=== PATIENT | male | born 1980 | race Caucasian/White ===

== ENCOUNTER 2024-01-17 14:27 | Outpatient (AMB) | payer OTHER, SELFPAY ==
--- NOTE | 2024-01-17 14:52 | MHC.OFFVIS ---
Vital Signs 01/17/24 14:54 Height 6 ft 4 in Weight 284 lb BMI 34.6 BP 118/82 Blood Pressure Location Rt brachial Position Sitting Pulse 91 Pulse Source Pulse Oximeter Pulse Oximetry (%) 97 Oxygen Delivery Method Room Air Intake Visit Reasons: ENP-Tremors - Confirmed Intake Note: Patient presents for tremors. Patient tremors started about 4 years ago and gradually gotten worst Allergies No Known Allergies Allergy (Verified 01/17/24 14:55) Medication List - Last Reconciled 01/17/24 by JAYLIN Escobedo amlodipine 5 mg PO DAILY labetalol 100 mg PO BID mycophenolate mofetil 500 mg PO Q12H omeprazole 20 mg PO DAILY tacrolimus XL 2 mg PO QAM HPI Comments Details: 43-yr-old male presents for new pt evaluation of movement disorder, specifically: progressing tremor in setting of s/p renal transplant d/t bilateral ESRD, HTN, HLD, CARLIN on CPAP, ED, Right ankle pain, Left shoulder pain, PTSD. Pt is accompanied by his Mignon, who helps w/ history. Pt is concerned about worsening BUE, R > L, rest and action tremor. Pt reports the tremor started in September 2019 which was 1 month after having been incidentally diagnosed with bilateral kidney failure. 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 The tremor became more noticeable after he underwent kidney transplant in Jan 2020, where he was required to rest and stay at home for mx months. Pt is right handed. ADL status: He does need assist w/ ADLs now. Prior to Spring 2021, he did have difficulty standing for long d/t h/o right reconstructed ankle- would need to sit to put his pants on. now has to lay down to put his pants on. IADL status: His manages the finances, households issues, medical appointments- d/t pt's memory is not as strong. Has systems in place. Fine-motor skills: Difficulty holding onto things. Changes in writing or micrographia: Writing is messier, now only prints. Vision changes: dry eye Voice changes or Hypophonia: denies Hyposmia: denies Dysphagia: denies Drooling: sometimes on the right side x's past 6-7 yrs. he has always been prone to spilling from cata right side of his mouth- states his whole family does this and his children to do this as much. Orthostatic lightheadedness: Only if very hot GI: Endorses constipation and diarrhea. Only uses prn lomotil. Not using anything for constipation- to avoid dehydrating. Tries to consume fiber through fruit. : Frequency r/t transplant Musculoskeletal issues: Has chronic neck and back pain- thinks r/t mx yrs of wearing heavy gear. Paresthesias: Frequent numbness down his legs, usually RLE but may be BLE. Bilateral warm tingly sensation from elbow down the arms- at times. Slowness: A little slower Stiffness: Has visible fasciculation- in random parts of the body- he states he was told this was r/t his chronic amlodipine use- states he cannot come off amlodipine as this causes his BP to spike . Tremor: as above Involuntary movements: sometimes his body jerks- mostly in the legs. Often occurs when sleeping. Has occurred rarely when standing or walkings. This started prior to 2011. Dyskinesia: denies Gait changes: tends to favor his right leg. Freezing episodes: occasionally- after he has been resting and gets up to move, leg has felt heavy and stuck, shuffles, which all of a sudden breaks. Falls: thinks he could have falls or loose of balance while working. his last fall was 1 month after the kidney transplant sx. Mood concerns: worsening anxiety, depression, PTSD. He is f/b therapist. He was receiving EMDR tx he will restart in the fall. His feels the therapy is helping some. Memory impairment: poor memory. Sleep difficulty: CARLIN- his AHI was 58/hr from an in-lab PSG. He does use his CPAP- does not love it. Parasomnias: Yes- talks, yells, punches/kicks/runs in bed, sleep terrors. [facility]- caused sleepwalking, lunesta, ? triazolam, amitriptyline, etc- did not tolerate. Hallucinations: denies. states that he hears things x's yrs- thinks something is happening outside of the house but may not be happening. Usual exercise: not much at this point- is scheduled to have right ankle repair. uses some cannibus- for pain. Previous head imaging or work-up: denies recent head imaging or EMG/NCS. History of concussion/head injury? 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 History of neuroleptic (metoclopramide/antipsychotics) use? denies History of psychiatric hospitalizations? denies History of occupational chemical exposures? 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 Family history of movement disorders? denies Family history of mood disorder or suicide? Family history of neurological disorders? Paternal grandmother- passed in 80s w/ dementia. Maternal grandmother- in her 80s and has dementia. [facility] Medical History (Updated 01/17/24 @ 21:34 by JAYLIN Escobedo) Tremors of nervous system PTSD (post-traumatic stress disorder) Right knee pain Left shoulder pain CARLIN (obstructive sleep apnea) Erectile dysfunction Low back pain Hyperlipidemia HTN (hypertension) Surgical History (Updated 01/09/24 @ 11:27 by JOSE Burnette) Hx of kidney transplant H/O vasectomy Family History Mother Thyroid disease Father Diabetes Heart disease Social History (Updated 01/17/24 @ 14:59 by JOSE Burnette) Patient Tobacco Use Status: Former Tobacco user Years Smoked: quit 4 years ago Physical Exam Vital Signs: Last Vital Signs Pulse 91 01/17/24 14:54 BP 118/82 01/17/24 14:54 Pulse Ox 97 01/17/24 14:54 Oxygen Delivery Method Room Air 01/17/24 14:54 BMI result Body Mass Index 34.6 Const General: cooperative and no acute distress Resp Effort & Inspection: normal respiratory effort and able to speak in complete sentences Cardio Rate: regular rate Rhythm: regular rhythm Neuro Other: General: A&O x's 3 w/ STM lapses Expression: Intact Voice: Intact Neck: Good overall cervical ROM Tremor: Mild BUE postural and kinetic tremor, L > R Tone: no appreciable tone Dyskinesia: none FFM: Ok Finger-Nose: mild kinetic tremor w/o dysmetria BUE COLBY: Decreased fluidity on left MS: 5/5 throughout Foot taps: Decreased fluidity on the left Gait: Stands slowly, uses his arms to push himself up, decreased arm swing, RLE guarding, steady gait. Psych: Pleasant affect. Deep tendon reflexes (DTR's): Right triceps reflex intensity grade: 2+, Left triceps reflex intensity grade: 2+, Rt Biceps (C5, C6): 2+, Left biceps reflex intensity grade: 2+, Right brachioradialis reflex intensity grade: 2+, Left brachioradialis reflex intensity grade: 2+, Right patellar reflex intensity grade: 2+ and Left patellar reflex intensity grade: 2+ Psych Mental Status: mental status grossly normal Speech and movement: Clear speech present Affect: normal affect Attitude: cooperative Thought process: Normal thought process present Assessment & Plan Assessment & Plan (1) Tremors of nervous system: Code(s): R25.1 - Tremor, unspecified Category: Medical (2) Paresthesia and pain of both upper extremities: Code(s): R20.2 - Paresthesia of skin; M79.601 - Pain in right arm; M79.602 - Pain in left arm Category: Medical Plan Pt is advised to undergo: Brain MRI w/wo BUE EMG/NCS Asked pt/ to record tremor seen at home. Futire considerations- OT eval & tx, DaTscan, trial of med to tx tremor. Pt seen in collaboration w/ Dr Kayley Craft. Orders: Orders MR head/brain wo/w con 01/17/24 M79.601 - Pain in right arm, M79.602 - Pain in left arm, R20.2 - Paresthesia of skin, R25.1 - Tremor, unspecified NE electromyogram (EMG) 01/17/24 M79.601 - Pain in right arm, M79.602 - Pain in left arm, R20.2 - Paresthesia of skin, R25.1 - Tremor, unspecified NE nerve conduction velocity 01/17/24 M79.601 - Pain in right arm, M79.602 - Pain in left arm, R20.2 - Paresthesia of skin, R25.1 - Tremor, unspecified Coding Level of Care Code New Pt Level 4 (43884) Diagnoses Tremors of nervous system R25.1 Paresthesia and pain of both upper extremities R20.2; M79.601; M79.602
[2024-01-17 14:54] VITALS: BP 118/82; PULSE 91; O2SAT 97; BMI 34.6
== END 2024-01-17 16:24 | disposition home or self-care (01) ==
PROVIDERS: Visit Provider Nurse Practitioner Family
DX: R25.1 Tremor, unspecified (principal); R20.2 Paresthesia of skin; M79.601 Pain in right arm; M79.602 Pain in left arm
CPT/HCPCS: 99204

== ENCOUNTER → 2024-01-17 14:27 | Outpatient (BNVA) | payer OTHER, SELFPAY | PROVIDERS: Visit Provider Nurse Practitioner Family | DX: R25.1 Tremor, unspecified (principal); R20.2 Paresthesia of skin; M79.601 Pain in right arm; M79.602 Pain in left arm; I12.9 Hypertensive chronic kidney disease with stage 1 through stage 4 chronic kidney disease, or unspecified chronic kidney disease; N18.9 Chronic kidney disease, unspecified; G47.33 Obstructive sleep apnea (adult) (pediatric); Z94.0 Kidney transplant status; Z99.89 Dependence on other enabling machines and devices | CPT/HCPCS: 99202 ==

== ENCOUNTER 2024-03-07 15:40 | Outpatient (REF) | payer OTHER, SELFPAY ==
--- NOTE | ~2024-03-07 | MR_ITS ---
EXAMINATION: MR BRAIN WITHOUT AND WITH CONTRAST CLINICAL INFORMATION: Headaches, tremors since 2019. History of infantile seizures. History of head injuries. COMPARISON: No prior. TECHNIQUE: Multiplanar, multisequence MRI of the brain was obtained before and after the intravenous administration of 10 mL IV Gadavist. Standard sequences were utilized, on a 1.5 Jackie Siemens magnet. In addition, sagittal T2 FLAIR sequences was obtained. FINDINGS: There is no diffusion restriction. There is no intracranial hemorrhage, acute infarction, mass effect, or edema. Ventricles, sulci, and cisterns are normal in size and configuration for patient age. No shift of midline. No abnormal hemosiderin deposition is identified. There are a numerous scattered punctate and minimally confluent foci of white matter T2 hyperintensity in the periventricular, subcortical, and hemispheric deep white matter, nonspecific, but most likely on the basis of small vessel ischemic changes. After administration of contrast, there is no abnormal intra or extra-axial contrast enhancement. Midline structures appear normally formed. The pituitary gland appears normal. There is a simple 6 mm pineal cyst without enhancement or nodularity. This is benign. Posterior fossa structures appear normal. Cerebellar tonsils are appropriately located. Major flow voids are preserved within the skull base. The globes and orbital contents demonstrate no abnormalities. Paranasal sinuses are clear bilaterally. Nasal septum right deviated with a rightward spur. The mastoids and tympanic cavities are normally aerated. Extracranial soft tissues demonstrate no abnormalities. No suspicious bone marrow changes are evident. Atlantoaxial joint is normal. MR/MR head/brain wo/w con IMPRESSION: 1. No evidence of intracranial hemorrhage, acute infarction, mass effect, or edema. No abnormal intra or extra-axial enhancement. 2. There are numerous bilateral scattered foci of punctate and minimally confluent white matter T2 hyperintensity in the supratentorial periventricular, subcortical, and hemispheric deep white matter. No distribution or morphology specific to demyelinating disease. 3. Additional ancillary findings as discussed in the body the report. Electronically signed by: Gabriel Campbell MD 04/03/2024 12:34 PM CHATA SINGH
[2024-03-07] MEDS: gadobutroL 10 ML VIAL IVPUSH (16:28)
== END 2024-03-07 15:41 | disposition home or self-care (01) ==
LOC: HO.MRI 15:40
PROVIDERS: Visit Provider Nurse Practitioner Family
DX: M79.601 Pain in right arm (principal); M79.602 Pain in left arm; R25.1 Tremor, unspecified; R20.2 Paresthesia of skin
CPT/HCPCS: 70553; A9585

== ENCOUNTER → 2024-03-07 15:40 | Outpatient (BNV) | payer OTHER, SELFPAY | PROVIDERS: Visit Provider Radiology Diagnostic Radiology | DX: R51.9 Headache, unspecified (principal) | CPT/HCPCS: 70553 ==

== ENCOUNTER 2024-04-15 13:01 | Outpatient (AMB) | payer OTHER, SELFPAY ==
--- NOTE | 2024-04-15 12:57 | MHC.OFFVIS ---
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 BUE EMG/NCS appointment is pending being rescheduled. 03/07/24, MR/MR head/brain wo/w con IMPRESSION: 1. No evidence of intracranial hemorrhage, acute infarction, mass effect, or edema. No abnormal intra or extra-axial enhancement. 2. There are numerous bilateral scattered foci of punctate and minimally confluent white matter T2 hyperintensity in the supratentorial periventricular, subcortical, and hemispheric deep white matter. No distribution or morphology specific to demyelinating disease. 3. A benign simple 6 mm pineal cyst without enhancement or nodularity. Pt reports his tremor is increasing. He is now needing to use a covered cup, noticing more difficulties eating as food falls off his fork, and has more difficulties opening jars. notices the tremors more often, but has had a hard time recording episodes as pt tries to suppress them. [facility] Medical History Tremors of nervous system PTSD (post-traumatic stress disorder) Right knee pain Left shoulder pain CARLIN (obstructive sleep apnea) Erectile dysfunction Low back pain Hyperlipidemia HTN (hypertension) Surgical History Hx of kidney transplant H/O vasectomy Family History Mother Thyroid disease Father Diabetes Heart disease Social History Patient Tobacco Use Status: Former Tobacco user Years Smoked: quit 4 years ago Physical Exam Vital Signs: BMI result Body Mass Index 34.7 Const Other: Pt laying back in a darkened room. General: cooperative and no acute distress Orientation/consciousness: patient oriented x3 Resp Effort & Inspection: normal respiratory effort and able to speak in complete sentences Neuro General: patient oriented x3 Cognition (Neuro): normal cognition Psych Appearance: grossly normal Mental Status: mental status grossly normal Speech and movement: Normal speech and movement present Affect: normal affect Attitude: cooperative Telehealth Telehealth Telehealth Platform: [facility] Location of provider rendering services: practice address Location of patient: address on file Patient Identification confirmed using: Name, : Yes Telehealth method: video Patient verbally consented to treatment: Yes Patient verbally consented to billing insurance company: Yes Patient informed of any privacy concerns related to visit: Yes Minutes spent on Phone/Video with Pt.: 22 Assessment & Plan Assessment & Plan (1) Tremors of nervous system: Code(s): R25.1 - Tremor, unspecified Category: Medical (2) Paresthesia and pain of both upper extremities: Code(s): R20.2 - Paresthesia of skin; M79.601 - Pain in right arm; M79.602 - Pain in left arm Category: Medical Plan BUE EMG/NCS as ordered. Reviewed [facility] MRI w/wo report and images- No acute findings of evidence of intracranial hemorrhage, acute infarction, mass effect, edema, or abnormal intra or extra-axial enhancement. Numerous bilateral scattered foci of punctate and minimally confluent white matter T2 hyperintensity in the supratentorial periventricular, subcortical, and hemispheric deep white matter. No distribution or morphology specific to demyelinating disease. No findings to accoount for pt's tremor s/s. Likely microangiopathy secondary to hx of uncontrolled HTN, HLD, h/o ESRD- now s/p kidlney transplant. A benign simple 6 mm pineal cyst without enhancement or nodularity. Will consider 6-12 month f/u brain MRI to assess stability of above intracerebral white matter disease. Pt is hesitatnt to trial tremor suppressing emdication at this time. Will refer pt to OT for tremor eval & tx- [facility] [place] Asked pt/ to record tremor seen at home. Futire considerations- DaTscan, trial of med to tx tremor. Orders: Orders OT Evaluation and Treatment Today M79.601 - Pain in right arm, M79.602 - Pain in left arm, R20.2 - Paresthesia of skin, R25.1 - Tremor, unspecified Coding Level of Care Code Tele Est Pt Level 4 (99477) Diagnoses Tremors of nervous system R25.1 Paresthesia and pain of both upper extremities R20.2; M79.601; M79.602
[2024-04-15 13:00] VITALS: BMI 34.7
== END 2024-04-15 14:01 | disposition home or self-care (01) ==
PROVIDERS: Visit Provider Nurse Practitioner Family
DX: R25.1 Tremor, unspecified (principal); R20.2 Paresthesia of skin; M79.601 Pain in right arm; M79.602 Pain in left arm
CPT/HCPCS: 99214

== ENCOUNTER 2024-08-22 14:04 | Outpatient (REF) | payer OTHER, SELFPAY ==
--- NOTE | 2024-08-22 14:07 | EMG_ITS ---
Chief complaint: Tremors, denies fasciculations, no weakness or atrophy History of kidney transplant Reason for referral: Evaluate for neuropathy Referred by: Katerin Sanchez NP Procedure done: Bilateral upper extremities NCS/EMG Precautions and/or limitations: None The limb temperature was monitored continuously and remained between 32-36 degrees C during the performance of the NCS. Nerve Conduction Studies Anti Sensory Summary Table ?Stim Site NR Onset (ms) Norm Onset (ms) Peak (ms) Norm Peak (ms) O-P Amp (?V) Norm O-P Amp Site1 Site2 Delta-0 (ms) Dist (cm) Mikey (m/s) Norm Mikey (m/s) Left Median Anti Sensory (2nd Digit) Wrist ? 2.4 3.0 <3.6 20.8 >10 Wrist 2nd Digit 2.4 14.0 58 Right Median Anti Sensory (2nd Digit) Wrist ? 2.3 3.1 <3.6 32.1 >10 Wrist 2nd Digit 2.3 14.0 61 Left Ulnar Anti Sensory (5th Digit) Wrist ? 2.2 3.1 <3.7 21.4 >15.0 Wrist 5th Digit 2.2 14.0 64 Right Ulnar Anti Sensory (5th Digit) Wrist ? 2.4 3.1 <3.7 23.7 >15.0 Wrist 5th Digit 2.4 14.0 58 Motor Summary Table ?Stim Site NR Onset (ms) Norm Onset (ms) O-P Amp (mV) Norm O-P Amp iAmp (mV) Amp (1st) (%) Site1 Site2 Delta-0 (ms) Dist (cm) Mikey (m/s) Norm Mikey (m/s) Left Median Motor (Abd Poll Brev) Wrist ? 3.3 <3.9 7.9 >4.5 9.5 100.0 Elbow Wrist 4.4 25.0 57 >45 Elbow ? 7.7 5.2 6.4 65.8 Right Median Motor (Abd Poll Brev) Wrist ? 3.3 <3.9 11.1 >4.5 13.1 100.0 Elbow Wrist 4.6 26.0 57 >45 Elbow ? 7.9 10.5 12.4 94.6 Left Ulnar Motor (Abd Dig Minimi) Wrist ? 2.7 <3.0 8.8 >5 10.8 100.0 B Elbow Wrist 4.0 24.0 60 >45 B Elbow ? 6.7 7.0 9.2 79.5 A Elbow B Elbow 2.1 10.0 48 >45 A Elbow ? 8.8 6.7 8.9 76.1 Right Ulnar Motor (Abd Dig Minimi) Wrist ? 2.7 <3.0 7.4 >5 8.9 100.0 B Elbow Wrist 4.0 24.0 60 >45 B Elbow ? 6.7 7.4 8.9 100.0 A Elbow B Elbow 1.4 10.0 71 >45 A Elbow ? 8.1 7.6 9.2 102.7 Comparison Summary Table ?Stim Site NR Peak (ms) Norm Peak (ms) P-T Amp (?V) Site1 Site2 Delta-P (ms) Norm Delta (ms) Right Median/Radial Dig I Comparison (Digit 1 - 10cm) Median ? 2.6 <2.9 126.0 Median Radial 0.1 Radial ? 2.5 <2.8 9.7 EMG ?Side Muscle Nerve Root Ins Act Fibs Psw Amp Dur Poly Recrt Int Pat Comment Right 1stDorInt Ulnar C8-T1 Nml Nml Nml Nml Nml 0 Nml Complete Right FlexCarRad Median C6-7 Nml Nml Nml Nml Nml 0 Nml Complete Right Biceps Musculocut C5-6 Nml Nml Nml Nml Nml 0 Nml Complete Right Triceps Radial C6-7-8 Nml Nml Nml Nml Nml 0 Nml Complete Right Deltoid Axillary C5-6 Nml Nml Nml Nml Nml 0 Nml Complete Left 1stDorInt Ulnar C8-T1 Nml Nml Nml Nml Nml 0 Nml Complete Left FlexCarRad Median C6-7 Nml Nml Nml Nml Nml 0 Nml Complete Left Biceps Musculocut C5-6 Nml Nml Nml Nml Nml 0 Nml Complete Left Triceps Radial C6-7-8 Nml Nml Nml Nml Nml 0 Nml Complete Left Deltoid Axillary C5-6 Nml Nml Nml Nml Nml 0 Nml Complete FINDINGS: All motor and sensory nerves tested showed normal latencies, amplitudes and conduction velocities. Concentric needle EMG was performed in selected muscles of the bilateral upper extremities. Study did not reveal signs of electric abnormalities as shown in the table above. IMPRESSION: 1. This is a normal study. 2. There is no electrodiagnostic evidence for median neuropathy, ulnar neuropathy, brachial plexopathy, or cervical radiculopathy. Thank you for your kind referral. Yane Sheehan MD, MEGAN Board Certified, [place] [employer] and [employer] (ABPMR) Board Certified, [place] [employer] Electrodiagnostic [employer] (ABEM) CODIN [phone] x 2 MTDD
== END 2024-08-22 14:05 | disposition home or self-care (01) ==
LOC: HO.NEURO 14:04
PROVIDERS: Visit Provider Nurse Practitioner Family
DX: R20.2 Paresthesia of skin (principal); M79.601 Pain in right arm; M79.602 Pain in left arm; R25.1 Tremor, unspecified
CPT/HCPCS: 95886; 95911

== ENCOUNTER → 2024-08-22 14:07 | Outpatient (BNV) | payer OTHER, SELFPAY | PROVIDERS: Visit Provider Physical Medicine & Rehabilitation | DX: R25.1 Tremor, unspecified (principal) | CPT/HCPCS: 95886; 95911 ==